=== PATIENT | female | born 1990 | race Caucasian/White ===

== ENCOUNTER 2018-01-08 15:21 | Inpatient (IN) | payer OTHER ==
[~2018-01-08] VITALS: Ht 165.1 cm; Wt 69.0 kg
[2018-01-08 15:32] LABS: BASOPHIL (%) 0.9 % (0-1); BASOPHIL COUNT 0.1 K/uL (0-0.1); EOSINOPHIL (%) 1.9 % (0-5); EOSINOPHIL COUNT 0.2 K/uL (0-0.3); HEMATOCRIT 41.7 % (36.0-46.0); HEMOGLOBIN 14.2 G/DL (11.9-15.5); IMMATURE GRANULOCYTE (%) 0.7 % (0.0-0.7); LYMPHOCYTE (%) 36.2 % (15-42); LYMPHOCYTE COUNT 3.6 K/uL (1.0-2.8); MCH 30.9 PG (29.0-34.0); MCHC 34.1 G/DL (30.0-36.0); MCV 90.8 FL (83-99); MONOCYTE (%) 5.8 % (3-12); MONOCYTE COUNT 0.6 K/uL (0-0.8); NEUTROPHIL (%) 54.5 % (45-76); NEUTROPHIL COUNT 5.5 K/uL (1.8-6.4); PLATELET COUNT 304 K/uL (156-360); RBC DIS.WIDTH-CV 12.2 % (11.8-14.6); RBC DIS.WIDTH-SD 40.4 % (39-53); RED BLOOD COUNT 4.59 M/uL (3.80-5.20); WHITE BLOOD COUNT 10.1 K/uL (4.1-10.2)
[2018-01-08 15:40] LABS: AMYLASE 67 IU/L (1-118); CHLORIDE 104 mEq/L (99-109); POTASSIUM 3.6 mEq/L (3.7-5.4); SODIUM 139 mEq/L (136-147)
[2018-01-08 15:42] LABS: GLUCOSE 112 mg/dL (70-99)
[2018-01-08 15:45] LABS: SERUM ETHYL ALCOHOL < 10 mg/dL
[2018-01-08 15:46] LABS: CREATININE 0.9 mg/dL (0.6-1.3)
[2018-01-08 15:47] LABS: UREA NITROGEN (BUN) 15 mg/dL (9-23)
[2018-01-08 15:49] LABS: LIPASE 30 U/L (1.0-51.0)
[2018-01-08 15:55] LABS: QUANTITATIVE HCG < 4.0 MIU/ML
[2018-01-08 15:57] LABS: GFR ESTIMATE (CALCULATED) > 59 mL/min/
[2018-01-08 16:37] LABS: APPEARANCE CLEAR ((CLEAR)); BILIRUBIN NEGATIVE; BLOOD LARGE; COLOR STRAW ((YELLOW)); GLUCOSE (STRIP) NEGATIVE; KETONES NEGATIVE; LEUKOCYTES NEGATIVE; NITRITE NEGATIVE; PROTEIN (STRIP) NEGATIVE; SPECIFIC GRAVITY 1.011 (1.000-1.030); UROBILINOGEN 0.2 MG/DL (0.2-1.0)
[2018-01-08 16:39] LABS: PTT 27.7 SEC (25-37)
[2018-01-08 16:47] LABS: BACTERIA RARE /HPF; EPITHELIAL CELLS RARE /HPF; MUCUS TRACE /LPF; RED BLOOD CELLS 0-5 /HPF (0-5); UCUL ADDED? NO; WHITE BLOOD CELLS 0-5 /HPF (0-5)
[2018-01-08 16:48] LABS: AMPHETAMINE NEGATIVE (500 ng/mL); BARBITURATES NEGATIVE (200 ng/mL); BENZODIAZEPINES NEGATIVE (150 ng/mL); BUPRENORPHINE NEGATIVE (10 ng/mL); COCAINE NEGATIVE (150 ng/mL); METHADONE NEGATIVE (200 ng/mL); METHAMPHETAMINE NEGATIVE (500 ng/mL); OPIATES (MORPHINE) NEGATIVE (100 ng/mL); OXYCODONE NEGATIVE (100 ng/mL); PHENCYCLIDINE NEGATIVE (25 ng/mL); PROPOXYPHENE NEGATIVE (300 ng/mL); THC CANNABINOIDS NEGATIVE (50 ng/mL); TRICYCLIC ANTIDEPRESSANTS NEGATIVE (300 ng/mL)
[2018-01-08] MEDS ORDERED: ORTHO TRI-CY1 TABLE1 PO (18:03)
[2018-01-08] MEDS ORDERED: ADVIL200 MG PO (18:05)
[2018-01-08 23:59] VITALS: BP 122/70
[2018-01-09 03:48] VITALS: BP 105/52
[2018-01-09 08:33] VITALS: BP 107/54
[2018-01-09 17:28] VITALS: BP 125/58
[2018-01-09 20:20] VITALS: BP 116/56
[2018-01-09 23:30] VITALS: BP 112/53
[2018-01-10 07:50] VITALS: BP 116/60
[2018-01-10] MEDS ORDERED: OXYCODONE HCL5 MG PO (09:30)
== END 2018-01-10 14:40 | disposition home or self-care (01) | DRG 481 ==
LOC: TRA 15:21 → EME 15:21 → 3EAST 17:00 → EDOF 17:00 → ENRESERV 17:33 → CANRESERV 17:33 → ENRESERV 18:11 → 3EAST 22:42
PROVIDERS: Emergency Medicine
PROC: 0QS904Z Reposition Left Femoral Shaft with Internal Fixation Device, Open Approach (ICD-10-PCS; principal; 2018-01-08)
DX: S72.362A Displaced segmental fracture of shaft of left femur, initial encounter for closed fracture (principal); S52.511A Displaced fracture of right radial styloid process, initial encounter for closed fracture; S62.304A Unspecified fracture of fourth metacarpal bone, right hand, initial encounter for closed fracture; S40.811A Abrasion of right upper arm, initial encounter; V29.9XXA Motorcycle rider (driver) (passenger) injured in unspecified traffic accident, initial encounter; Y92.410 Unspecified street and highway as the place of occurrence of the external cause; Z82.49 Family history of ischemic heart disease and other diseases of the circulatory system
CPT/HCPCS: 71045; 73130; 73502; 73552; 73560; 76000; 80048; 81003; 82150; 83690; 84702; 85025; 85610; 85730; 86850; 86900; 86901; 97530 GO; 99281; 99285; C1713; G0480; J0131; J0330; J0690; J1100; J1170; J1644; J1885; J2405; J3010; J7120; S0020